=== PATIENT | female | born 1990 | race Two or more races ===

== ENCOUNTER 2024-07-09 13:27 | Emergency (ER) | payer OTHER ==
[2024-07-09 13:38] VITALS: BP 124/75; PULSE 80; RESP 16; TEMP 98.4; BMI 40.0
[2024-07-09 15:20] LABS: PH,URINE 5.5 (5.0-8.0); URINE APPEARANCE CLEAR; URINE BILIRUBIN NEGATIVE (NEGATIVE); URINE COLOR YELLOW; URINE GLUCOSE (UA) NEGATIVE (NEGATIVE); URINE KETONE NEGATIVE (NEGATIVE); URINE LEUK ESTERASE NEGATIVE (NEGATIVE); URINE NITRITE NEGATIVE (NEGATIVE); URINE PROTEIN NEGATIVE (NEGATIVE)
[2024-07-09 15:34] LABS: BASO % 0.3 % (0-2.0); EOS % 0.4 % (0-4.5); HEMATOCRIT 39.3 % (32.4-45.2); HEMOGLOBIN 13.2 GM/dL (10.7-15.3); LYMPH % 19.1 % (8-40); MCH 31.8 pg (25.7-33.7); MCHC 33.7 g/dl (32.0-36.0); MEAN CELL VOLUME 94.4 fl (80-96); MEAN PLT VOLUME 8.3 fl (7.5-11.1); MONO % 4.8 % (3.8-10.2); NEUT % 75.4 % (42.8-82.8); PLATELET COUNT 218 10^3/uL (134-434); RBC 4.16 M/mm3 (3.60-5.2); RDW 12.6 % (11.6-15.6)
[2024-07-09 15:54] LABS: POTASSIUM 3.9 mmol/L (3.5-5.1)
[2024-07-09 15:55] LABS: CALCIUM 8.7 mg/dL (8.5-10.1)
[2024-07-09 15:56] LABS: ALBUMIN 3.4 g/dl (3.4-5.0)
[2024-07-09 15:59] LABS: CREATININE 0.8 mg/dL (0.55-1.3)
[2024-07-09 16:01] LABS: BILIRUBIN,TOTAL 0.3 mg/dL (0.2-1); TOT PROT 6.3 g/dl (6.4-8.2)
[2024-07-09 21:34] LABS: HIV INTERPRETATION NEGATIVE (NEGATIVE)
== END 2024-07-09 19:02 | disposition home or self-care (01) ==
LOC: JER 13:27
DX: O26.892 Other specified pregnancy related conditions, second trimester (principal); R10.2 Pelvic and perineal pain; O26.891 Other specified pregnancy related conditions, first trimester; R11.0 Nausea; M54.50 Low back pain, unspecified; Z3A.18 18 weeks gestation of pregnancy
CPT/HCPCS: 36415; 76817-TC; 80053; 81003; 84702; 84703; 85025; 86803; 87086; 87389; 99284-25